=== PATIENT | female | born 1980 | race Caucasian/White ===

== ENCOUNTER 2017-10-27 08:01 | Outpatient (CLI) | payer OTHER | END 2017-10-27 08:03 | disposition home or self-care (01) | LOC: NUCLEAR 08:01 | DX: I11.9 Hypertensive heart disease without heart failure (principal); E11.9 Type 2 diabetes mellitus without complications; I25.10 Atherosclerotic heart disease of native coronary artery without angina pectoris | CPT/HCPCS: A9500; 93017; 78452 ==